=== PATIENT | male | born 1940 | race Caucasian/White ===

== ENCOUNTER 2023-10-23 12:50 | Inpatient (IN) | payer OTHER ==
[~2023-10-23] VITALS: Ht 182.9 cm; Wt 76.2 kg
[2023-10-23 12:56] VITALS: BP_SYST 105; PULSE 69; RESP 20; TEMP 96.5; O2SAT 97
[2023-10-23 13:41] LABS: HEMATOCRIT 23.8 % (36-54); HEMOGLOBIN 8.4 g/dL (14.0-18.0); MEAN CORPUSCULAR HEMOGLOBIN 39 pg (27-31); MEAN CORPUSCULAR HGB CONC 35 % (32-36); MEAN CORPUSCULAR VOLUME 111 fL (79.0-98.0); PLATELET COUNT (AUTO) 361 K/uL (130-430); RED BLOOD CELL COUNT(AUTO) 2.15 MIL/uL (4.2-6.2); WHITE BLOOD COUNT (AUTO) 9.5 K/uL (4.8-10.8)
[2023-10-23 13:56] LABS: PROTHROMBIN TIME 10.4 SECS (9.5-12.5)
[2023-10-23 14:11] LABS: ALANINE AMINOTRANSFERASE 0 U/L (12-78); ALBUMIN 3.4 g/dL (3.4-4.8); ANION GAP 12 (5-15); ASPARTATE AMINOTRANSFERASE 10 U/L (10-37); BILIRUBIN,DIRECT 0.2 mg/dL (0.0-0.3); CALCIUM 8.8 mg/dL (8.4-11.0); CARBON DIOXIDE 25 mmol/L (23-29); CHLORIDE 103 mmol/L (98-107); CREATINE KINASE, TOTAL 33 U/L (39-308); CREATININE 1.43 mg/dL (0.55-1.30); GLUCOSE 112 mg/dL (74-106); POTASSIUM 4.1 mmol/L (3.5-5.1); SODIUM SERUM 140 mmol/L (136-145); TOTAL BILIRUBIN 0.8 mg/dL (0.0-1.0); UREA NITROGEN, BLOOD 28 mg/dL (8-21)
[2023-10-23 14:18] LABS: ANISOCYTOSIS 2+; BASOPHILS % (MANUAL) 0 % (0-2); EOSINOPHILS % (MANUAL) 0 % (0-7); LYMPHOCYTES % (MANUAL) 10 % (20-46); MONOCYTES % (MANUAL) 3 % (0-11); OVALOCYTES FEW; PLATELET ESTIMATE ADEQUATE (ADEQUATE); TARGET CELLS FEW
[2023-10-23 15:15] LABS: BILIRUBIN,URINE NEGATIVE (NEGATIVE); BLOOD, URINE NEGATIVE (NEGATIVE); CLARITY/URINE CLEAR (CLEAR); COLOR,URINE YELLOW (YELLOW); GLUCOSE,URINE NEGATIVE (NEGATIVE); KETONES,URINE NEGATIVE (NEGATIVE); LEUKOCYTE ESTERASE ,URINE NEGATIVE (NEGATIVE); NITRITE, URINE NEGATIVE (NEGATIVE); PH,URINE 5.5 (5.0-8.0); PROTEIN URINE NEGATIVE (NEGATIVE); UROBILINOGEN,URINE 0.2 (0.2-1.0)
[2023-10-23] MEDS: NACL 0.9% 1,000 ML IV ONE ×2 (15:51→16:34)
[2023-10-23] MEDS ORDERED: OLAN2.5T29 PO (15:59)
[2023-10-23] MEDS ORDERED: SENN8.6T19 PO (15:59)
[2023-10-23] MEDS ORDERED: DONE10TA44 PO (15:59)
[2023-10-23] MEDS ORDERED: MULT-1117 PO (15:59)
[2023-10-23 17:32] LABS: COVID19 ANTIGEN SOFIA FIA NEGATIVE (NEGATIVE)
[2023-10-23 17:33] LABS: INFLUENZA TYPE A Negative (NEGATIVE); INFLUENZA TYPE B NEGATIVE (NEGATIVE)
[2023-10-23 20:00] VITALS: BP_SYST 109; PULSE 71; RESP 18; RESP 20; TEMP 98.2; O2SAT 96
[2023-10-24 00:15] VITALS: BP_SYST 131; RESP 20; TEMP 97.5; O2SAT 96
[2023-10-24] MEDS: LORazepam 2 MG/ML VIAL IVP PRN (03:38)
[2023-10-24 08:11] VITALS: BP_SYST 155; PULSE 95; RESP 19; TEMP 97.4; O2SAT 96
[2023-10-24 09:00] VITALS: BP_SYST 167
[2023-10-24] MEDS ORDERED: HYDROcodone/ACETAMIN 5-325 MG TAB (NORCO/ VICODIN) PO PRN (10:45)
[2023-10-24] MEDS ORDERED: ONDANSETRON HCL 4 MG/2 ML VIAL IVP PRN (10:45)
[2023-10-24] MEDS ORDERED: HYDROcodone/ACETAMIN 10-325 MG TAB PO PRN (10:45)
[2023-10-24] MEDS ORDERED: NALOXONE HCL 0.4 MG/ML AMP (NARCAN) IVP PRN ×2 (10:45)
[2023-10-24] MEDS ORDERED: ACETAMINOPHEN 325 MG TABLET PO PRN (11:00)
[2023-10-24] MEDS: MULTIVITAMINS TAB 1 TABLET PO ONE (11:00)
[2023-10-24 11:59] LABS: BASOPHILS # (AUTO) 0.1 K/uL (0.0-0.2); BASOPHILS % (AUTO) 0.8 % (0.0-2.0); EOSINOPHILS # (AUTO) 0.1 K/uL (0.0-0.4); EOSINOPHILS % (AUTO) 0.6 % (0.0-4.0); HEMOGLOBIN 7.5 g/dL (14.0-18.0); LYMPHOCYTES # (AUTO) 0.9 K/uL (1.0-5.5); LYMPHOCYTES % (AUTO) 9.4 % (20.5-51.5); MEAN CORPUSCULAR HEMOGLOBIN 39 pg (27-31); MEAN CORPUSCULAR HGB CONC 35 % (32-36); MEAN CORPUSCULAR VOLUME 109 fL (79.0-98.0); MONOCYTES # (AUTO) 0.7 K/uL (0.0-1.0); MONOCYTES % (AUTO) 7.5 % (1.7-9.3); NEUTROPHILS # (AUTO) 7.5 K/uL (1.8-7.7); NEUTROPHILS % (AUTO) 81.7 % (40.0-70.0); PLATELET COUNT (AUTO) 281 K/uL (130-430); RED CELL DISTRIBUTION WIDTH 25.9 % (9.0-15.0); WHITE BLOOD COUNT (AUTO) 9.1 K/uL (4.8-10.8)
[2023-10-24 12:02] LABS: RED BLOOD CELL COUNT(AUTO) 1.94 MIL/uL (4.2-6.2)
[2023-10-24 12:04] LABS: ANION GAP 10 (5-15); CALCIUM 8.2 mg/dL (8.4-11.0); CARBON DIOXIDE 25 mmol/L (23-29); CHLORIDE 105 mmol/L (98-107); CHOLESTEROL 123 mg/dL (<200); CREATININE 0.89 mg/dL (0.55-1.30); GLUCOSE 109 mg/dL (74-106); HDL CHOLESTEROL 62 mg/dL (>45); POTASSIUM 3.9 mmol/L (3.5-5.1); SODIUM SERUM 140 mmol/L (136-145); THYROID STIMULATING HORMONE 2.92 uIu/mL (0.34-4.82); TRIGLYCERIDES 50 mg/dL (30-150); UREA NITROGEN, BLOOD 18 mg/dL (8-21)
[2023-10-24 12:34] LABS: HEMATOCRIT 21.1 % (36-54)
[2023-10-24 13:09] VITALS: BP_SYST 112; PULSE 74; RESP 18; TEMP 97.9; O2SAT 97
[2023-10-24] MEDS: metroNIDAZOLE 500 mg/NS 100 ML IV SCH (15:12)
[2023-10-24] MEDS: cefTRIAXone 1 GM IVPB PREMIX 50 ML IV SCH (15:12)
[2023-10-24 18:30] VITALS: BP_SYST 113; PULSE 79; RESP 18; TEMP 98.4; O2SAT 97
[2023-10-24 20:00] VITALS: BP_SYST 119; PULSE 84; RESP 20; TEMP 97.8; O2SAT 95
[2023-10-24] MEDS: SENNOSIDES 8.6 MG TABLET PO SCH (21:26)
[2023-10-24] MEDS: DONEPEZIL HCL 5 MG TABLET (ARICEPT) PO SCH (21:26)
[2023-10-24] MEDS: OLANZapine 2.5 MG TABLET PO SCH (21:26)
[2023-10-25] VITALS (7 sets, daily range): BP systolic 95–119; PULSE 60–73; RESP 16–18; TEMP 97.1–98.2; O2SAT 95–98
[2023-10-25] MEDS: NACL 0.9% 1,000 ML IV ONE (00:41)
[2023-10-25 06:39] LABS: BILIRUBIN,URINE NEGATIVE (NEGATIVE); BLOOD, URINE 1+ (NEGATIVE); CLARITY/URINE CLEAR (CLEAR); COLOR,URINE YELLOW (YELLOW); GLUCOSE,URINE NEGATIVE (NEGATIVE); KETONES,URINE NEGATIVE (NEGATIVE); LEUKOCYTE ESTERASE ,URINE NEGATIVE (NEGATIVE); NITRITE, URINE NEGATIVE (NEGATIVE); PH,URINE 5.5 (5.0-8.0); PROTEIN URINE NEGATIVE (NEGATIVE); UROBILINOGEN,URINE 0.2 (0.2-1.0)
[2023-10-25 07:48] LABS: BASOPHILS # (AUTO) 0.1 K/uL (0.0-0.2); EOSINOPHILS # (AUTO) 0.3 K/uL (0.0-0.4); EOSINOPHILS % (AUTO) 3.2 % (0.0-4.0); HEMOGLOBIN 7.3 g/dL (14.0-18.0); LYMPHOCYTES # (AUTO) 1.5 K/uL (1.0-5.5); LYMPHOCYTES % (AUTO) 15.9 % (20.5-51.5); MEAN CORPUSCULAR HEMOGLOBIN 39 pg (27-31); MEAN CORPUSCULAR HGB CONC 35 % (32-36); MEAN CORPUSCULAR VOLUME 112 fL (79.0-98.0); MONOCYTES # (AUTO) 0.8 K/uL (0.0-1.0); MONOCYTES % (AUTO) 8.8 % (1.7-9.3); NEUTROPHILS # (AUTO) 6.7 K/uL (1.8-7.7); NEUTROPHILS % (AUTO) 71.1 % (40.0-70.0); PLATELET COUNT (AUTO) 251 K/uL (130-430); WHITE BLOOD COUNT (AUTO) 9.5 K/uL (4.8-10.8)
[2023-10-25 07:59] LABS: ANION GAP 10 (5-15); CALCIUM 8.1 mg/dL (8.4-11.0); CARBON DIOXIDE 23 mmol/L (23-29); CHLORIDE 108 mmol/L (98-107); CREATININE 0.85 mg/dL (0.55-1.30); GLUCOSE 93 mg/dL (74-106); PHOSPHORUS 3.8 mg/dL (2.7-4.5); POTASSIUM 3.8 mmol/L (3.5-5.1); SODIUM SERUM 141 mmol/L (136-145); UREA NITROGEN, BLOOD 14 mg/dL (8-21)
[2023-10-25 08:06] LABS: BACTERIA,URINE None Seen /HPF (None Seen); WBC,URINE 0-3 /HPF (0-3)
[2023-10-25 08:08] LABS: MUCUS,URINE 1+ /LPF (None Seen)
[2023-10-25 08:16] LABS: RED BLOOD CELL COUNT(AUTO) 1.86 MIL/uL (4.2-6.2)
[2023-10-25 08:18] LABS: HEMATOCRIT 20.7 % (36-54)
[2023-10-25] MEDS: MULTIVITAMINS TAB 1 TABLET PO SCH (10:34)
[2023-10-25 11:43] LABS: TOTAL IRON BIND. CAPACITY 165 ug/dL (250-450)
[2023-10-25] MEDS: LORazepam 2 MG/ML VIAL IVP PRN (14:22)
[2023-10-25] MEDS: CALCIUM GLUCONATE 2 GM in NS 100 ML IV ONE (19:24)
[2023-10-26 00:46] VITALS: BP_SYST 133; PULSE 100; RESP 18; TEMP 96.8; O2SAT 96
[2023-10-26 05:39] LABS: BASOPHILS # (AUTO) 0.1 K/uL (0.0-0.2); BASOPHILS % (AUTO) 0.8 % (0.0-2.0); EOSINOPHILS # (AUTO) 0.5 K/uL (0.0-0.4); EOSINOPHILS % (AUTO) 7.4 % (0.0-4.0); LYMPHOCYTES # (AUTO) 1.7 K/uL (1.0-5.5); LYMPHOCYTES % (AUTO) 23.3 % (20.5-51.5); MEAN CORPUSCULAR HEMOGLOBIN 39 pg (27-31); MEAN CORPUSCULAR HGB CONC 35 % (32-36); MEAN CORPUSCULAR VOLUME 110 fL (79.0-98.0); MONOCYTES # (AUTO) 0.5 K/uL (0.0-1.0); NEUTROPHILS # (AUTO) 4.5 K/uL (1.8-7.7); NEUTROPHILS % (AUTO) 61.5 % (40.0-70.0); PLATELET COUNT (AUTO) 236 K/uL (130-430); RED CELL DISTRIBUTION WIDTH 26.3 % (9.0-15.0); WHITE BLOOD COUNT (AUTO) 7.3 K/uL (4.8-10.8)
[2023-10-26 05:48] LABS: ERYTHROCYTE SEDIMENTATION RATE 21 MM/HR (0-15)
[2023-10-26 05:57] LABS: ALBUMIN 2.6 g/dL (3.4-4.8); ANION GAP 8 (5-15); ASPARTATE AMINOTRANSFERASE 12 U/L (10-37); CALCIUM 8.3 mg/dL (8.4-11.0); CARBON DIOXIDE 26 mmol/L (23-29); CHLORIDE 107 mmol/L (98-107); CREATININE 0.88 mg/dL (0.55-1.30); GLUCOSE 88 mg/dL (74-106); POTASSIUM 3.6 mmol/L (3.5-5.1); SODIUM SERUM 141 mmol/L (136-145); TOTAL BILIRUBIN 0.9 mg/dL (0.0-1.0); TOTAL PROTEIN, SERUM 5.7 g/dL (6.4-8.3); UREA NITROGEN, BLOOD 13 mg/dL (8-21)
[2023-10-26 08:12] VITALS: BP_SYST 103; PULSE 68; RESP 16; TEMP 98.4; O2SAT 100
[2023-10-26 08:12] LABS: RED BLOOD CELL COUNT(AUTO) 1.75 MIL/uL (4.2-6.2)
[2023-10-26 08:14] LABS: HEMATOCRIT 19.4 % (36-54); HEMOGLOBIN 6.8 g/dL (14.0-18.0)
[2023-10-26 08:52] LABS: ALANINE AMINOTRANSFERASE 11 U/L (12-78)
[2023-10-26 10:50] VITALS: O2SAT 100
[2023-10-26 13:28] VITALS: BP_SYST 98; PULSE 71; RESP 17; TEMP 98.5; O2SAT 95
[2023-10-26 18:15] VITALS: BP_SYST 107; PULSE 72; RESP 18; TEMP 97.8; O2SAT 97
[2023-10-26 20:00] VITALS: BP_SYST 128; PULSE 78; RESP 18; TEMP 97.9; O2SAT 99
[2023-10-26] MEDS: QUEtiapine FUMARATE 25 MG TABLET PO SCH (21:28)
[2023-10-26 22:06] LABS: HEMATOCRIT 19.3 % (36-54)
[2023-10-27] VITALS: BP_SYST 114; PULSE 71; RESP 18; TEMP 97.9; O2SAT 98
[2023-10-27 07:13] LABS: BASOPHILS # (AUTO) 0.1 K/uL (0.0-0.2); BASOPHILS % (AUTO) 0.8 % (0.0-2.0); EOSINOPHILS # (AUTO) 0.5 K/uL (0.0-0.4); EOSINOPHILS % (AUTO) 5.8 % (0.0-4.0); HEMATOCRIT 23.3 % (36-54); LYMPHOCYTES # (AUTO) 1.9 K/uL (1.0-5.5); LYMPHOCYTES % (AUTO) 21.7 % (20.5-51.5); MEAN CORPUSCULAR HEMOGLOBIN 36 pg (27-31); MEAN CORPUSCULAR HGB CONC 34 % (32-36); MEAN CORPUSCULAR VOLUME 105 fL (79.0-98.0); MONOCYTES # (AUTO) 0.6 K/uL (0.0-1.0); MONOCYTES % (AUTO) 6.8 % (1.7-9.3); NEUTROPHILS # (AUTO) 5.8 K/uL (1.8-7.7); NEUTROPHILS % (AUTO) 64.9 % (40.0-70.0); PLATELET COUNT (AUTO) 260 K/uL (130-430); RED BLOOD CELL COUNT(AUTO) 2.21 MIL/uL (4.2-6.2); RED CELL DISTRIBUTION WIDTH 27.8 % (9.0-15.0)
[2023-10-27 07:15] LABS: ALBUMIN 2.5 g/dL (3.4-4.8); ANION GAP 11 (5-15); CARBON DIOXIDE 24 mmol/L (23-29); CHLORIDE 105 mmol/L (98-107); CREATININE 0.82 mg/dL (0.55-1.30); GLUCOSE 89 mg/dL (74-106); POTASSIUM 3.7 mmol/L (3.5-5.1); SODIUM SERUM 140 mmol/L (136-145); TOTAL BILIRUBIN 1.7 mg/dL (0.0-1.0); TOTAL PROTEIN, SERUM 5.6 g/dL (6.4-8.3); UREA NITROGEN, BLOOD 14 mg/dL (8-21)
[2023-10-27 07:37] LABS: ALANINE AMINOTRANSFERASE 5 U/L (12-78); ASPARTATE AMINOTRANSFERASE 13 U/L (10-37)
[2023-10-27 08:03] VITALS: BP_SYST 142; PULSE 68; RESP 14; TEMP 96.4; O2SAT 91
[2023-10-27] MEDS: SOD FERRIC GLUC COMPLEX/SUC 125 MG in NS 100 ML IV SCH (13:26)
[2023-10-27 13:35] VITALS: BP_SYST 150; PULSE 72; RESP 18; TEMP 97.3; O2SAT 98
[2023-10-27 16:00] VITALS: BP_SYST 148; PULSE 84; RESP 18; TEMP 97.3; O2SAT 98
[2023-10-27] MEDS: QUEtiapine FUMARATE 25 MG TABLET PO ONE (16:15)
[2023-10-27] MEDS: HALOPERIDOL LACTATE 5 MG/ML VIAL IM PRN (17:58)
[2023-10-27 20:00] VITALS: BP_SYST 144; PULSE 85; RESP 18; TEMP 98.5; O2SAT 96
[2023-10-27] MEDS: QUEtiapine FUMARATE 25 MG TABLET PO SCH (20:53)
[2023-10-28] VITALS (8 sets, daily range): BP systolic 121–141; PULSE 68–90; RESP 17–19; TEMP 98.1–99.1; O2SAT 81–98
[2023-10-28 05:44] LABS: BASOPHILS # (AUTO) 0.1 K/uL (0.0-0.2); BASOPHILS % (AUTO) 0.8 % (0.0-2.0); EOSINOPHILS # (AUTO) 0.2 K/uL (0.0-0.4); HEMATOCRIT 23.1 % (36-54); LYMPHOCYTES # (AUTO) 0.9 K/uL (1.0-5.5); LYMPHOCYTES % (AUTO) 10.2 % (20.5-51.5); MEAN CORPUSCULAR HEMOGLOBIN 37 pg (27-31); MEAN CORPUSCULAR HGB CONC 35 % (32-36); MEAN CORPUSCULAR VOLUME 106 fL (79.0-98.0); MONOCYTES # (AUTO) 0.7 K/uL (0.0-1.0); MONOCYTES % (AUTO) 7.9 % (1.7-9.3); NEUTROPHILS % (AUTO) 79.1 % (40.0-70.0); PLATELET COUNT (AUTO) 263 K/uL (130-430); RED BLOOD CELL COUNT(AUTO) 2.19 MIL/uL (4.2-6.2); WHITE BLOOD COUNT (AUTO) 8.8 K/uL (4.8-10.8)
[2023-10-28 06:43] LABS: ALANINE AMINOTRANSFERASE 14 U/L (12-78); ALBUMIN 2.9 g/dL (3.4-4.8); ANION GAP 9 (5-15); ASPARTATE AMINOTRANSFERASE 22 U/L (10-37); CALCIUM 8.5 mg/dL (8.4-11.0); CARBON DIOXIDE 27 mmol/L (23-29); CHLORIDE 104 mmol/L (98-107); CREATININE 1.01 mg/dL (0.55-1.30); GLUCOSE 97 mg/dL (74-106); POTASSIUM 3.5 mmol/L (3.5-5.1); SODIUM SERUM 140 mmol/L (136-145); TOTAL BILIRUBIN 1.6 mg/dL (0.0-1.0); TOTAL PROTEIN, SERUM 6.5 g/dL (6.4-8.3); UREA NITROGEN, BLOOD 12 mg/dL (8-21)
[2023-10-28] MEDS: SODIUM CL 3% FOR INHALATION 15 ML VIAL.NEB INH ONE (13:07)
[2023-10-28] MEDS: BISACODYL 10 MG/SUPPOSITORY RC ONE (13:51)
[2023-10-28] MEDS: NYSTATIN 15 GM TOPICAL POWDER TP SCH (22:47)
[2023-10-29 01:03] VITALS: BP_SYST 130; PULSE 90; RESP 18; TEMP 98.9; O2SAT 96
[2023-10-29 05:30] LABS: BASOPHILS # (AUTO) 0.1 K/uL (0.0-0.2); BASOPHILS % (AUTO) 1.3 % (0.0-2.0); EOSINOPHILS # (AUTO) 0.2 K/uL (0.0-0.4); HEMATOCRIT 22.4 % (36-54); HEMOGLOBIN 7.7 g/dL (14.0-18.0); LYMPHOCYTES # (AUTO) 1.4 K/uL (1.0-5.5); LYMPHOCYTES % (AUTO) 12.6 % (20.5-51.5); MEAN CORPUSCULAR HEMOGLOBIN 36 pg (27-31); MEAN CORPUSCULAR HGB CONC 34 % (32-36); MEAN CORPUSCULAR VOLUME 106 fL (79.0-98.0); MONOCYTES % (AUTO) 9.6 % (1.7-9.3); NEUTROPHILS % (AUTO) 74.5 % (40.0-70.0); PLATELET COUNT (AUTO) 247 K/uL (130-430); RED BLOOD CELL COUNT(AUTO) 2.11 MIL/uL (4.2-6.2); WHITE BLOOD COUNT (AUTO) 10.8 K/uL (4.8-10.8)
[2023-10-29 06:08] LABS: ALBUMIN 2.5 g/dL (3.4-4.8); ANION GAP 10 (5-15); CALCIUM 8.4 mg/dL (8.4-11.0); CARBON DIOXIDE 24 mmol/L (23-29); CHLORIDE 105 mmol/L (98-107); CREATININE 0.73 mg/dL (0.55-1.30); GLUCOSE 109 mg/dL (74-106); POTASSIUM 3.7 mmol/L (3.5-5.1); SODIUM SERUM 139 mmol/L (136-145); TOTAL BILIRUBIN 1.3 mg/dL (0.0-1.0); TOTAL PROTEIN, SERUM 6.1 g/dL (6.4-8.3); UREA NITROGEN, BLOOD 13 mg/dL (8-21)
[2023-10-29 08:05] VITALS: O2SAT 98
[2023-10-29 12:48] VITALS: BP_SYST 120; PULSE 92; RESP 16; TEMP 98.7; O2SAT 97
[2023-10-29 16:44] VITALS: BP_SYST 126; PULSE 97; RESP 18; TEMP 98.1; O2SAT 95
[2023-10-29 20:00] VITALS: BP_SYST 102; PULSE 94; RESP 18; TEMP 98; O2SAT 92
[2023-10-29 22:08] LABS: ALANINE AMINOTRANSFERASE 14 U/L (12-78); ASPARTATE AMINOTRANSFERASE 20 U/L (10-37)
[2023-10-30] VITALS (7 sets, daily range): BP systolic 107–142; PULSE 75–90; RESP 16–18; TEMP 97.3–99.2; O2SAT 90–98
[2023-10-30 05:40] LABS: BASOPHILS # (AUTO) 0.1 K/uL (0.0-0.2); BASOPHILS % (AUTO) 0.5 % (0.0-2.0); HEMOGLOBIN 7.3 g/dL (14.0-18.0); LYMPHOCYTES # (AUTO) 0.9 K/uL (1.0-5.5); LYMPHOCYTES % (AUTO) 5.6 % (20.5-51.5); MEAN CORPUSCULAR HEMOGLOBIN 36 pg (27-31); MEAN CORPUSCULAR HGB CONC 34 % (32-36); MEAN CORPUSCULAR VOLUME 107 fL (79.0-98.0); MONOCYTES # (AUTO) 1.3 K/uL (0.0-1.0); NEUTROPHILS % (AUTO) 85.9 % (40.0-70.0); PLATELET COUNT (AUTO) 258 K/uL (130-430); RED BLOOD CELL COUNT(AUTO) 2.03 MIL/uL (4.2-6.2); RED CELL DISTRIBUTION WIDTH 27.5 % (9.0-15.0); WHITE BLOOD COUNT (AUTO) 16.3 K/uL (4.8-10.8)
[2023-10-30 06:18] LABS: ALANINE AMINOTRANSFERASE 25 U/L (12-78); ALBUMIN 2.6 g/dL (3.4-4.8); ANION GAP 8 (5-15); ASPARTATE AMINOTRANSFERASE 25 U/L (10-37); CALCIUM 8.9 mg/dL (8.4-11.0); CARBON DIOXIDE 26 mmol/L (23-29); CHLORIDE 103 mmol/L (98-107); CREATININE 1.24 mg/dL (0.55-1.30); GLUCOSE 139 mg/dL (74-106); POTASSIUM 3.8 mmol/L (3.5-5.1); SODIUM SERUM 137 mmol/L (136-145); TOTAL BILIRUBIN 1.2 mg/dL (0.0-1.0); TOTAL PROTEIN, SERUM 6.7 g/dL (6.4-8.3); UREA NITROGEN, BLOOD 30 mg/dL (8-21)
[2023-10-30 06:51] LABS: HEMATOCRIT 21.6 % (36-54)
[2023-10-30] MEDS: PIPERACILLIN/TAZO 3.375 GM in D5W 50 ML IV SCH (14:44)
[2023-10-30] MEDS: ACETAMINOPHEN 325 MG TABLET PO ONE (16:24)
[2023-10-31 03:44] LABS: BILIRUBIN,URINE NEGATIVE (NEGATIVE); BLOOD, URINE 3+ (NEGATIVE); CLARITY/URINE SL CLOUDY (CLEAR); COLOR,URINE YELLOW (YELLOW); GLUCOSE,URINE NEGATIVE (NEGATIVE); KETONES,URINE NEGATIVE (NEGATIVE); LEUKOCYTE ESTERASE ,URINE TRACE (NEGATIVE); NITRITE, URINE NEGATIVE (NEGATIVE); PH,URINE 5.5 (5.0-8.0); PROTEIN URINE 1+ (NEGATIVE); UROBILINOGEN,URINE 0.2 (0.2-1.0)
[2023-10-31 04:00] VITALS: BP_SYST 123; PULSE 75; RESP 17; TEMP 98.8; O2SAT 97
[2023-10-31 04:00] LABS: BACTERIA,URINE MANY /HPF (None Seen); RBC,URINE >100 /HPF (0-3); WBC,URINE 50-80 /HPF (0-3)
[2023-10-31 07:30] VITALS: BP_SYST 135; PULSE 110; RESP 15; TEMP 98.4; O2SAT 97
[2023-10-31 08:52] LABS: ALANINE AMINOTRANSFERASE 53 U/L (12-78); ALBUMIN 2.3 g/dL (3.4-4.8); ANION GAP 9 (5-15); ASPARTATE AMINOTRANSFERASE 49 U/L (10-37); CALCIUM 8.8 mg/dL (8.4-11.0); CARBON DIOXIDE 26 mmol/L (23-29); CHLORIDE 105 mmol/L (98-107); CREATININE 1.26 mg/dL (0.55-1.30); GLUCOSE 109 mg/dL (74-106); POTASSIUM 3.8 mmol/L (3.5-5.1); SODIUM SERUM 140 mmol/L (136-145); TOTAL BILIRUBIN 1.2 mg/dL (0.0-1.0); TOTAL PROTEIN, SERUM 6.6 g/dL (6.4-8.3); UREA NITROGEN, BLOOD 37 mg/dL (8-21)
[2023-10-31 09:09] LABS: BASOPHILS # (AUTO) 0.1 K/uL (0.0-0.2); BASOPHILS % (AUTO) 0.5 % (0.0-2.0); EOSINOPHILS # (AUTO) 0.2 K/uL (0.0-0.4); EOSINOPHILS % (AUTO) 1.4 % (0.0-4.0); HEMATOCRIT 23.2 % (36-54); HEMOGLOBIN 7.9 g/dL (14.0-18.0); LYMPHOCYTES # (AUTO) 1.3 K/uL (1.0-5.5); LYMPHOCYTES % (AUTO) 9.1 % (20.5-51.5); MEAN CORPUSCULAR HEMOGLOBIN 34 pg (27-31); MEAN CORPUSCULAR HGB CONC 34 % (32-36); MEAN CORPUSCULAR VOLUME 101 fL (79.0-98.0); MONOCYTES % (AUTO) 6.8 % (1.7-9.3); NEUTROPHILS % (AUTO) 82.2 % (40.0-70.0); PLATELET COUNT (AUTO) 269 K/uL (130-430); RED CELL DISTRIBUTION WIDTH 30.2 % (9.0-15.0); WHITE BLOOD COUNT (AUTO) 14.6 K/uL (4.8-10.8)
[2023-10-31 10:45] VITALS: O2SAT 97
[2023-10-31 11:05] VITALS: BP_SYST 120; PULSE 87; RESP 16; TEMP 100.3; O2SAT 95
[2023-10-31 16:04] VITALS: BP_SYST 122; PULSE 85; RESP 16; TEMP 99; O2SAT 96
[2023-10-31 20:00] VITALS: BP_SYST 128; PULSE 76; RESP 16; TEMP 98.7; O2SAT 96
[2023-11-01] VITALS: BP_SYST 139; PULSE 79; RESP 16; TEMP 98.1; O2SAT 98
[2023-11-01 06:46] LABS: BASOPHILS # (AUTO) 0.1 K/uL (0.0-0.2); EOSINOPHILS # (AUTO) 0.3 K/uL (0.0-0.4); HEMOGLOBIN 8.1 g/dL (14.0-18.0); MONOCYTES # (AUTO) 0.9 K/uL (0.0-1.0); RED BLOOD CELL COUNT(AUTO) 2.38 MIL/uL (4.2-6.2); WHITE BLOOD COUNT (AUTO) 11.5 K/uL (4.8-10.8)
[2023-11-01 07:14] LABS: ALANINE AMINOTRANSFERASE 71 U/L (12-78); ALBUMIN 2.3 g/dL (3.4-4.8); ANION GAP 8 (5-15); ASPARTATE AMINOTRANSFERASE 46 U/L (10-37); CALCIUM 9.1 mg/dL (8.4-11.0); CARBON DIOXIDE 28 mmol/L (23-29); CHLORIDE 107 mmol/L (98-107); CREATININE 1.21 mg/dL (0.55-1.30); GLUCOSE 111 mg/dL (74-106); POTASSIUM 4.1 mmol/L (3.5-5.1); SODIUM SERUM 143 mmol/L (136-145); TOTAL BILIRUBIN 1.5 mg/dL (0.0-1.0); TOTAL PROTEIN, SERUM 6.9 g/dL (6.4-8.3); UREA NITROGEN, BLOOD 32 mg/dL (8-21)
[2023-11-01 07:30] LABS: EOSINOPHILS % (AUTO) 2.7 % (0.0-4.0); HEMATOCRIT 24.1 % (36-54); LYMPHOCYTES # (AUTO) 1.2 K/uL (1.0-5.5); LYMPHOCYTES % (AUTO) 10.5 % (20.5-51.5); MEAN CORPUSCULAR HEMOGLOBIN 34 pg (27-31); MEAN CORPUSCULAR HGB CONC 34 % (32-36); MEAN CORPUSCULAR VOLUME 101 fL (79.0-98.0); MONOCYTES % (AUTO) 7.5 % (1.7-9.3); NEUTROPHILS % (AUTO) 78.3 % (40.0-70.0); PLATELET COUNT (AUTO) 341 K/uL (130-430); RED CELL DISTRIBUTION WIDTH 30.1 % (9.0-15.0)
[2023-11-01 08:00] VITALS: O2SAT 96
[2023-11-01] MEDS: ACETAMINOPHEN 325 MG TABLET PO PRN (09:49)
[2023-11-01 12:28] VITALS: BP_SYST 84; PULSE 58; RESP 16; TEMP 97.7; O2SAT 95
[2023-11-01 16:04] VITALS: BP_SYST 130; PULSE 80; RESP 16; TEMP 98.5; O2SAT 98
[2023-11-01 20:00] VITALS: O2SAT 96
[2023-11-02 01:01] VITALS: BP_SYST 131; PULSE 78; RESP 18; TEMP 98.4
[2023-11-02 05:48] LABS: BASOPHILS # (AUTO) 0.1 K/uL (0.0-0.2); BASOPHILS % (AUTO) 1.1 % (0.0-2.0); EOSINOPHILS # (AUTO) 0.5 K/uL (0.0-0.4); EOSINOPHILS % (AUTO) 4.4 % (0.0-4.0); HEMOGLOBIN 7.5 g/dL (14.0-18.0); LYMPHOCYTES # (AUTO) 1.9 K/uL (1.0-5.5); LYMPHOCYTES % (AUTO) 18.5 % (20.5-51.5); MEAN CORPUSCULAR HEMOGLOBIN 35 pg (27-31); MEAN CORPUSCULAR HGB CONC 34 % (32-36); MEAN CORPUSCULAR VOLUME 101 fL (79.0-98.0); MONOCYTES # (AUTO) 0.8 K/uL (0.0-1.0); MONOCYTES % (AUTO) 7.3 % (1.7-9.3); NEUTROPHILS # (AUTO) 7.2 K/uL (1.8-7.7); NEUTROPHILS % (AUTO) 68.7 % (40.0-70.0); PLATELET COUNT (AUTO) 339 K/uL (130-430); RED BLOOD CELL COUNT(AUTO) 2.15 MIL/uL (4.2-6.2); RED CELL DISTRIBUTION WIDTH 29.4 % (9.0-15.0); WHITE BLOOD COUNT (AUTO) 10.5 K/uL (4.8-10.8)
[2023-11-02 05:58] LABS: ALANINE AMINOTRANSFERASE 65 U/L (12-78); ALBUMIN 2.1 g/dL (3.4-4.8); ANION GAP 9 (5-15); ASPARTATE AMINOTRANSFERASE 39 U/L (10-37); CALCIUM 8.8 mg/dL (8.4-11.0); CARBON DIOXIDE 27 mmol/L (23-29); CHLORIDE 112 mmol/L (98-107); CREATININE 1.31 mg/dL (0.55-1.30); GLUCOSE 103 mg/dL (74-106); POTASSIUM 4.4 mmol/L (3.5-5.1); SODIUM SERUM 148 mmol/L (136-145); TOTAL BILIRUBIN 1.2 mg/dL (0.0-1.0); TOTAL PROTEIN, SERUM 6.5 g/dL (6.4-8.3); UREA NITROGEN, BLOOD 39 mg/dL (8-21)
[2023-11-02 08:00] VITALS: BP_SYST 129; PULSE 79; RESP 18; TEMP 97.4; O2SAT 97; O2SAT 98
[2023-11-02 08:44] LABS: HEMATOCRIT 21.7 % (36-54)
[2023-11-02] MEDS ORDERED: LORazepam 2 MG/ML VIAL IVP PRN (11:30)
[2023-11-02] MEDS ORDERED: HYDROcodone/ACETAMIN 5-325 MG TAB (NORCO/ VICODIN) PO PRN (11:30)
[2023-11-02] MEDS ORDERED: HYDROcodone/ACETAMIN 10-325 MG TAB PO PRN (11:30)
[2023-11-02 12:02] VITALS: BP_SYST 132; PULSE 77; RESP 17; TEMP 97.6; O2SAT 99
[2023-11-02 16:05] VITALS: BP_SYST 130; PULSE 78; RESP 18; TEMP 98.1; O2SAT 98
[2023-11-02 20:00] VITALS: BP_SYST 119; PULSE 77; RESP 16; TEMP 98.6; O2SAT 93
[2023-11-02 21:30] VITALS: O2SAT 97
[2023-11-03 00:42] VITALS: BP_SYST 126; PULSE 75; RESP 14; TEMP 98.6; O2SAT 100
[2023-11-03 06:07] LABS: ANION GAP 8 (5-15); CALCIUM 9.1 mg/dL (8.4-11.0); CARBON DIOXIDE 27 mmol/L (23-29); CHLORIDE 113 mmol/L (98-107); CREATININE 1.27 mg/dL (0.55-1.30); GLUCOSE 105 mg/dL (74-106); PHOSPHORUS 3.6 mg/dL (2.7-4.5); POTASSIUM 4.2 mmol/L (3.5-5.1); SODIUM SERUM 148 mmol/L (136-145); UREA NITROGEN, BLOOD 38 mg/dL (8-21)
[2023-11-03 06:10] LABS: BASOPHILS # (AUTO) 0.1 K/uL (0.0-0.2); BASOPHILS % (AUTO) 1.1 % (0.0-2.0); EOSINOPHILS # (AUTO) 0.3 K/uL (0.0-0.4); EOSINOPHILS % (AUTO) 2.9 % (0.0-4.0); HEMOGLOBIN 7.2 g/dL (14.0-18.0); LYMPHOCYTES # (AUTO) 1.6 K/uL (1.0-5.5); LYMPHOCYTES % (AUTO) 14.1 % (20.5-51.5); MEAN CORPUSCULAR HEMOGLOBIN 34 pg (27-31); MEAN CORPUSCULAR HGB CONC 34 % (32-36); MEAN CORPUSCULAR VOLUME 101 fL (79.0-98.0); MONOCYTES # (AUTO) 0.9 K/uL (0.0-1.0); MONOCYTES % (AUTO) 7.7 % (1.7-9.3); NEUTROPHILS # (AUTO) 8.3 K/uL (1.8-7.7); NEUTROPHILS % (AUTO) 74.2 % (40.0-70.0); PLATELET COUNT (AUTO) 358 K/uL (130-430); RED BLOOD CELL COUNT(AUTO) 2.12 MIL/uL (4.2-6.2); RED CELL DISTRIBUTION WIDTH 29.1 % (9.0-15.0); WHITE BLOOD COUNT (AUTO) 11.2 K/uL (4.8-10.8)
[2023-11-03 06:12] LABS: ERYTHROCYTE SEDIMENTATION RATE > 130 MM/HR (0-15)
[2023-11-03] MEDS ORDERED: fentaNYL CITRATE/PF 100 MCG/2 ML AMP ONE (07:50)
[2023-11-03] MEDS ORDERED: MIDAZOLAM HCL 5 MG/5 ML VIAL ONE (07:50)
[2023-11-03 07:54] LABS: HEMATOCRIT 21.4 % (36-54)
[2023-11-03 08:00] VITALS: BP_SYST 144; PULSE 80; RESP 16; TEMP 98; O2SAT 94; O2SAT 95
[2023-11-03 11:07] VITALS: BP_SYST 127; PULSE 79; RESP 15; TEMP 98.1; O2SAT 96
[2023-11-03] MEDS ORDERED: SER25 PO (14:55)
[2023-11-03] MEDS ORDERED: MULT-1089 PO (14:55)
[2023-11-03 15:47] VITALS: BP_SYST 132; PULSE 86; RESP 18; TEMP 98.1; O2SAT 95
== END 2023-11-03 16:00 | disposition hospice, home (50) | DRG 640 ==
LOC: SED 12:50 → STU 16:35 → SMU 10-28 12:00
PROVIDERS: ADMIT Preventive Medicine Preventive Medicine/Occupational Environmental Medicine; ATTEND Specialist
PROC: 30233N1 Transfusion of Nonautologous Red Blood Cells into Peripheral Vein, Percutaneous Approach (ICD-10-PCS; principal; 2023-10-26)
DX: E86.0 Dehydration (principal); J69.0 Pneumonitis due to inhalation of food and vomit; N17.9 Acute kidney failure, unspecified; E87.1 Hypo-osmolality and hyponatremia; E87.20 Acidosis, unspecified; E83.51 Hypocalcemia; D64.9 Anemia, unspecified; Z20.822 Contact with and (suspected) exposure to COVID-19; I95.9 Hypotension, unspecified; Z96.612 Presence of left artificial shoulder joint; Z96.611 Presence of right artificial shoulder joint; E83.41 Hypermagnesemia; R73.9 Hyperglycemia, unspecified; F03.90 Unspecified dementia, unspecified severity, without behavioral disturbance, psychotic disturbance, mood disturbance, and anxiety; E88.09 Other disorders of plasma-protein metabolism, not elsewhere classified; Z79.899 Other long term (current) drug therapy
CPT/HCPCS: 36415; 70450-TC; 71045; 76770; 80048; 80053; 80061; 80076; 81000; 81001; 81003; 81015; 82272; 82550; 82948; 83540; 83550; 83605; 83735; 84100; 84443; 84484; 85007; 85018; 85025; 85027; 85610; 85651; 85730; 86886; 86900; 86901; 86920; 87040; 87070; 87081; 87086; 87205; 93005; 93306; 93880; 94640; 95816; 96360; 96361; 97110-GP; 97116-GP; 97163-GP; 97530-GP; 99291; G0378; J0610; J0696; J1630; J2060; J2250; J2543; J2916; J3010; J3490; J7060; J7131; P9021